=== PATIENT | male | born 1960 | race American Indian/Alaskan Native ===

== ENCOUNTER 2017-08-06 05:28 | Inpatient (IN) | payer MEDICARE ==
[2017-08-06] MEDS ORDERED: PROVENTIL IH ONE ×2 (05:41→06:56)
[2017-08-06] MEDS ORDERED: DUONEB *Not for PRN Use IH ONE ×2 (05:42→06:09)
--- NOTE | 2017-08-06 06:27 | XRay Report ---
FINAL REPORT EXAM: XR CHEST 1V AP HISTORY: Dyspnea TECHNIQUE: A portable upright view of the chest was submitted. FINDINGS: The lungs are diffusely congested. There is a moderate right-sided effusion. There is extensive airspace disease in the right lung. The heart is mildly enlarged. There EKG leads overlying the chest wall. The bones and soft tissues do not show any acute changes. IMPRESSION: Congestive heart failure pattern with right-sided effusion. Patchy airspace disease throughout the right lung. Whether this is related to edema versus pneumonia is uncertain.
[2017-08-06 06:42] LABS: Basophils % (Auto) 0.2 % (0.0-1.8); Eosinophils % (Auto) 1.6 % (0.0-4.3); Hemoglobin 9.7 gm/dl (11.8-15.2); Mean Corpuscular HGB Conc 31 % (32-34); Mean Corpuscular Hemoglobin 30 pg (28-32); Mean Corpuscular Volume 96 fl (84-94); Platelet Count 167 K/mm3 (140-440); Red Blood Count 3.23 M/mm3 (3.65-5.03); White Blood Count 6.6 K/mm3 (4.5-11.0)
--- NOTE | 2017-08-06 07:03 | Emergency Department Report ---
HPI - General Chief Complaint: Dyspnea/Respdistress Time Seen by Provider: 08/06/17 06:49 - HPI HPI: This is a 56-year-old -Russian male presents to the emergency department by EMS from home with complaint of some shortness of breath that has been going on and getting progressively worse over the past few days. He was found to have 86% oxygen on room air when EMS arrived. He was given 5 mg of albuterol and placed on nasal cannula and his oxygen went up to 95%. He has a past medical history of HIV, hypertension and some chronic kidney disease. He has not taken anything for his symptoms prior to presentation. His primary care physician is a Dr. Cooley. No recent travel or sick contacts at home. ED Past Medical Hx - Past Medical History Previous Medical History?: Yes Hx Hypertension: Yes Hx Renal Disease: Yes Hx HIV: Yes - Surgical History Past Surgical History?: No - Social History Smoking Status: Never Smoker Substance Use Type: Prescribed ED Review of Systems ROS: Stated complaint: OMERO Other details as noted in HPI Comment: All other systems reviewed and negative Constitutional: denies: chills, fever Eyes: denies: eye pain, eye discharge, vision change ENT: denies: ear pain, throat pain Respiratory: cough, shortness of breath, wheezing Cardiovascular: edema. denies: chest pain Gastrointestinal: denies: abdominal pain, nausea, diarrhea Genitourinary: denies: urgency, dysuria Musculoskeletal: denies: back pain, joint swelling, arthralgia Skin: denies: rash, lesions Neurological: denies: headache, weakness, paresthesias Physical Exam - Physical Exam Vital Signs: Vital Signs 08/06/17 05:33 Temperature 97.5 F L Pulse Rate 108 H Respiratory 22 Rate Blood Pressure 170/104 O2 Sat by Pulse 99 Oximetry Physical Exam: GENERAL: Patient is ill-appearing. HENT: Normocephalic. Atraumatic. Patient has moist mucous membranes. EYES: Extraocular motions are intact. Pupils equal reactive to light bilaterally. NECK: Supple. Trachea is midline. CHEST/LUNGS: Coarse breath sounds throughout the chest. There is some tachypnea and accessory muscle use. There is conversational dyspnea. There is respiratory distress noted. HEART/CARDIOVASCULAR: Regular. There is mild tachycardia. There is no murmur. ABDOMEN: Abdomen is soft, nontender. Patient has normal bowel sounds. There is no abdominal distention. SKIN: Skin is warm and dry. NEURO: Patient is fatigued but arousable. Hard to assess orientation as he is having conversational dyspnea. Follows commands. Withdraws to painful stimuli. MUSCULOSKELETAL: There is no tenderness or deformity. There is no evidence of acute injury. ED Course Vital Signs 08/06/17 05:33 Temperature 97.5 F L Pulse Rate 108 H Respiratory 22 Rate Blood Pressure 170/104 O2 Sat by Pulse 99 Oximetry - Reevaluation(s) Reevaluation #1: The patient called the nurse and myself back into the room to discuss CODE STATUS. The patient has awake and alert, competent to make his own medical decisions. The DO NOT RESUSCITATE form was read to him in detail and explained in layman's terms that if his heart is to stop or his breathing is to stop and he would not receive any intubation, chest compressions or any advanced resuscitation efforts. He understands and agrees and has signed the DO NOT RESUSCITATE form. 08/06/17 07:23 - ABG Interpretation Ph: [phone] PCO2: 44 PO2: 65 Bicarbonate: 26 Interpretation: normal ED Medical Decision Making - Lab Data Result diagrams: 08/06/17 06:18 08/06/17 06:18 - EKG Data -: EKG Interpreted by Ne EKG shows normal: sinus rhythm, axis, intervals, QRS complexes, ST-T waves Rate: tachycardia (124 bpm) - EKG Data When compared to previous EKG there are: previous EKG unavailable Interpretation: other (sinus tach, borderline prolonged QT, no STEMI) - Radiology Data Radiology results: report reviewed EXAM: XR CHEST 1V AP HISTORY: Dyspnea TECHNIQUE: A portable upright view of the chest was submitted. FINDINGS: The lungs are diffusely congested. There is a moderate right-sided effusion. There is extensive airspace disease in the right lung. The heart is mildly enlarged. There EKG leads overlying the chest wall. The bones and soft tissues do not show any acute changes. IMPRESSION: Congestive heart failure pattern with right-sided effusion. Patchy airspace disease throughout the right lung. Whether this is related to edema versus pneumonia is uncertain. Transcribed By: RB Dictated By: KELLY CABALLERO MD Electronically Authenticated By: KELLY CABALLERO MD Signed Date/Time: 08/06/17223 CT HEAD WITHOUT CONTRAST: HISTORY: Altered mental status. TECHNIQUE: Sequential 2.5mm CT images. COMPARISON: none. FINDINGS: Cerebral Parenchyma: Within normal limits. Cerebellum: Within normal limits. Brainstem: Within normal limits. Ventricles: Normal. Sella: Normal. Extra-axial spaces: Normal. Basal Cisterns: Normal. Intracranial Hemorrhage: None. Midline Shift: None. Calvarium: Normal. Sinuses: Normal. Mastoid Air Cells: Normal. Visualized Orbits: Normal. IMPRESSION: Cranial CT scan within normal limits. Transcribed By: TTR Dictated By: SANDY CAREY JR, MD Electronically Authenticated By: SANDY CAREY JR, MD Signed Date/Time: 08/06/17 0946 - Medical Decision Making Patient presents from home with some shortness of breath and was found to have some hypoxia at first by EMS. He does appear to have some respiratory distress here but this improves with breathing treatments. He was also given some IV Solu-Medrol and supplemental oxygen. The patient has some abnormal labs including renal sufficiency, elevated troponin, elevated d-dimer and elevated BNP. Attempted to do a VQ scan but the patient became more fatigued and or lethargic. Prior to this all happening, as discussed in the reevaluation section, the patient made himself a DO NOT RESUSCITATE. Patient had bilateral lower extremity venous Dopplers that were negative for DVT. Chest x-ray was read as some volume overload but also possibly some airspace disease. Blood culture sent and the patient was started on Levaquin. He will be admitted to the hospital for further evaluation and treatment has been accepted for admission by the hospitalist, Dr. Christine. - Differential Diagnosis CHF, pneumonia, PE, VT Critical Care Time: No Critical care attestation.: If time is entered above; I have spent that time in minutes in the direct care of this critically ill patient, excluding procedure time. ED Disposition Clinical Impression: ESRD on dialysis, Respiratory distress Volume overload Qualifiers: Hypervolemia type: unspecified Qualified Code(s): E87.70 - Fluid overload, unspecified Anemia in CKD (chronic kidney disease) Qualifiers: Chronic kidney disease stage: unspecified stage Qualified Code(s): N18.9 - Chronic kidney disease, unspecified; D63.1 - Anemia in chronic kidney disease; D63.1 - Anemia in chronic kidney disease Altered mental state Qualifiers: Altered mental status type: unspecified Qualified Code(s): R41.82 - Altered mental status, unspecified Disposition: DC-09 OP ADMIT IP TO THIS HOSP Is pt being admited?: Yes Condition: Serious Referrals: EAN MOON [employer]INE OPERATOR [Primary Care Provider] - 3-5 Days Time of Disposition: 13:13
[2017-08-06 07:15] LABS: Creatine Kinase MB 8.8 ng/mL (0.0-4.0)
[2017-08-06 07:17] LABS: Albumin 3.7 g/dL (3.9-5); Albumin/Globulin Ratio 0.6 %; Bilirubin,Total 1.1 mg/dL (0.1-1.2); Chloride 90.5 mmol/L (98-107); Total Protein 9.6 g/dL (6.3-8.2)
[2017-08-06 07:28] LABS: Potassium 4.6 mmol/L (3.6-5.0)
[2017-08-06] MEDS ORDERED: ROBITUSSIN ONE (07:35)
[2017-08-06] MEDS ORDERED: ROBITUSSIN AC PO ONE (08:00)
[2017-08-06] MEDS ORDERED: ROBITUSSIN PO ONE (08:05)
[2017-08-06 08:48] LABS: ISTAT Base Excess 1; ISTAT HCO3 26.1; ISTAT PCO2 44.8 (35-45); ISTAT PH 7.374 (7.35-7.45); ISTAT PO2 65 (80-105); ISTAT SO2 92; ISTAT TCO2 27
[2017-08-06] MEDS ORDERED: LEVAQUIN 750MG/150ML 750 MG/150 ML BAG IV ONE (09:12)
--- NOTE | 2017-08-06 09:51 | Cat Scan Report ---
CT HEAD WITHOUT CONTRAST: HISTORY: Altered mental status. TECHNIQUE: Sequential 2.5mm CT images. COMPARISON: none. FINDINGS: Cerebral Parenchyma: Within normal limits. Cerebellum: Within normal limits. Brainstem: Within normal limits. Ventricles: Normal. Sella: Normal. Extra-axial spaces: Normal. Basal Cisterns: Normal. Intracranial Hemorrhage: None. Midline Shift: None. Calvarium: Normal. Sinuses: Normal. Mastoid Air Cells: Normal. Visualized Orbits: Normal. IMPRESSION: Cranial CT scan within normal limits.
[2017-08-06] MEDS ORDERED: TYLENOL PO PRN (12:37)
[2017-08-06] MEDS ORDERED: DULCOLAX PR PRN (12:37)
[2017-08-06] MEDS ORDERED: PROVENTIL IH PRN (12:37)
[2017-08-06] MEDS ORDERED: ZOFRAN IV PRN (12:37)
[2017-08-06] MEDS ORDERED: MILK OF MAGNESIA PO PRN (12:37)
--- NOTE | 2017-08-06 12:37 | History and Physical Report ---
History of Present Illness Chief complaint: I cant breathe History of present illness: 56 YO Male with HIV, HTN, ESRD on HD(M,W,F) presents to ED for evaluation. Pt states that he has experienced shortness of breath for the past 4 days with progressively worsening symptoms over the same time frame. Pt acknowledges cough. No reports of fever, chill, CP, Palpitations, NVD, Syncope, skin rash, BRBPR, Trauma, or recent ill contacts. EMS notified, and upon arrival patient found to have hypoxemic respiratory failure with oxygen saturation of 86%on RA. Pt treated with supplemental oxygen and transported to [facility] for evaluation. Pt seen and evaluated in ED and found to be in distress. Pt initiated on Pneumonia protocol, and admitted to medial floor. Past History Past Medical History: HIV/AIDS, hypertension, renal failure Past Surgical History: No surgical history, Other (reviewed) Social history: single. denies: smoking, alcohol abuse, prescription drug abuse Family history: hypertension Medications and Allergies Allergies Allergy/AdvReac Type Severity Reaction Status Date / Time Sulfa (Sulfonamide Allergy Hives Verified 08/06/17 05:40 Antibiotics) Review of Systems Constitutional: anorexia, no weight loss, no weight gain, no fever, no chills Ears, nose, mouth and throat: no ear pain, no ear discharge, no tinnitis, no decreased hearing Cardiovascular: no chest pain, no orthopnea, no palpitations, no rapid/ irregular heart beat Respiratory: cough, shortness of breath, no excessive sputum, no hemoptysis Gastrointestinal: no nausea, no vomiting, no diarrhea Genitourinary Male: no hematuria, no flank pain, no discharge, no urinary frequency, no urinary hesitancy Rectal: no pain, no incontinence, no bleeding Musculoskeletal: no neck stiffness, no neck pain, no arm numbness/tingling, no low back pain Integumentary: no rash, no pruritis, no redness, no sores Neurological: no paralysis, no weakness, no parathesias, no numbness, no tingling, no seizures Psychiatric: no memory loss, no change in sleep habits, no sleep disturbances, no insomnia, no hypersomnia, no change in appetite Endocrine: no cold intolerance, no heat intolerance, no polyphagia, no excessive thirst, no polydipsia, no polyuria Hematologic/Lymphatic: no easy bruising, no easy bleeding Allergic/Immunologic: no urticaria, no allergic rhinitis, no wheezing Exam - Constitutional Vitals: Temp Pulse Resp BP Pulse Ox 97.5 F L 105 H 18 128/88 97 08/06/17 05:33 08/06/17 12:15 08/06/17 12:15 08/06/17 12:15 08/06/17 12:15 General appearance: Present: mild distress, cachectic, disheveled - EENT Eyes: Present: PERRL ENT: hearing intact, clear oral mucosa - Respiratory Respiratory effort: labored Respiratory: bilateral: diminished - Cardiovascular Heart Sounds: Present: S1 & S2. Absent: rub, click - Extremities Extremities: pulses symmetrical, No edema - Abdominal General gastrointestinal: Present: soft, non-tender, non-distended Male genitourinary: Absent: normal - Integumentary Integumentary: Present: clear, dry, clammy, decreased turgor - Musculoskeletal Musculoskeletal: generalized weakness - Psychiatric Psychiatric: appropriate mood/affect - Neurologic Neurologic: CNII-XII intact, moves all extremities Results - Labs CBC & Chem 7: 08/06/17 06:18 08/06/17 06:18 Labs: Abnormal lab results 08/06/17 08/06/17 08/06/17 Range/Units 06:18 06:18 06:18 RBC 3.23 L (3.65-5.03) M/mm3 Hgb 9.7 L (11.8-15.2) gm/dl Hct 31.0 L (35.5-45.6) % MCV 96 H (84-94) fl MCHC 31 L (32-34) % RDW 17.0 H (13.2-15.2) % Lymph # 1.0 L (1.2-5.4) K/mm3 Seg Neutrophils % 77.2 H (40.0-70.0) % D-Dimer 1249.06 H (0-234) ng/mlDDU POC ABG pO2 (80-105) Chloride 90.5 L (98-107) mmol/L BUN 47 H (9-20) mg/dL Creatinine 8.6 H (0.8-1.5) mg/dL Glucose 111 H (75-100) mg/dL Lactic Acid (0.7-2.0) mmol/L Calcium 7.0 L (8.4-10.2) mg/dL Ammonia (25-60) umol/L Total Creatine Kinase 681 H (55-170) units/L CK-MB (CK-2) 8.8 H (0.0-4.0) ng/mL Troponin T (0.00-0.029) ng/mL NT-Pro-B Natriuret Pep (0-900) pg/mL Total Protein 9.6 H (6.3-8.2) g/dL Albumin 3.7 L (3.9-5) g/dL LDL Cholesterol Direct (50-130) mg/dL 08/06/17 08/06/17 08/06/17 Range/Units 06:18 06:18 08:47 RBC (3.65-5.03) M/mm3 Hgb (11.8-15.2) gm/dl Hct (35.5-45.6) % MCV (84-94) fl MCHC (32-34) % RDW (13.2-15.2) % Lymph # (1.2-5.4) K/mm3 Seg Neutrophils % (40.0-70.0) % D-Dimer (0-234) ng/mlDDU POC ABG pO2 65 L (80-105) Chloride (98-107) mmol/L BUN (9-20) mg/dL Creatinine (0.8-1.5) mg/dL Glucose (75-100) mg/dL Lactic Acid 2.40 H* (0.7-2.0) mmol/L Calcium (8.4-10.2) mg/dL Ammonia (25-60) umol/L Total Creatine Kinase (55-170) units/L CK-MB (CK-2) (0.0-4.0) ng/mL Troponin T (0.00-0.029) ng/mL NT-Pro-B Natriuret Pep > 84129 H (0-900) pg/mL Total Protein (6.3-8.2) g/dL Albumin (3.9-5) g/dL LDL Cholesterol Direct (50-130) mg/dL 08/06/17 08/06/17 Range/Units 09:41 09:41 RBC (3.65-5.03) M/mm3 Hgb (11.8-15.2) gm/dl Hct (35.5-45.6) % MCV (84-94) fl MCHC (32-34) % RDW (13.2-15.2) % Lymph # (1.2-5.4) K/mm3 Seg Neutrophils % (40.0-70.0) % D-Dimer (0-234) ng/mlDDU POC ABG pO2 (80-105) Chloride (98-107) mmol/L BUN (9-20) mg/dL Creatinine (0.8-1.5) mg/dL Glucose (75-100) mg/dL Lactic Acid (0.7-2.0) mmol/L Calcium (8.4-10.2) mg/dL Ammonia 18.0 L (25-60) umol/L Total Creatine Kinase (55-170) units/L CK-MB (CK-2) (0.0-4.0) ng/mL Troponin T 0.259 H* (0.00-0.029) ng/mL NT-Pro-B Natriuret Pep (0-900) pg/mL Total Protein (6.3-8.2) g/dL Albumin (3.9-5) g/dL LDL Cholesterol Direct 42 L (50-130) mg/dL Assessment and Plan - Patient Problems (1) Pneumonia Current Visit: Yes Status: Acute Qualifiers: Laterality: right Lung location: lower lobe of lung Plan to address problem: Pneumonia protocol: IV abx, IVF, supplemental oxygen, aspiration precautions, nebulizer therapy, supportive care. Chest X ray (2) ESRD on dialysis Current Visit: Yes Status: Acute Plan to address problem: Nephrology consulted in ED, dialysis as per renal team. (3) Respiratory failure Current Visit: Yes Status: Acute Plan to address problem: Supplemental oxygen, nebs, aspiration precautions, NIPPV as cilnically indicated , (4) ARF (acute renal failure) Current Visit: Yes Status: Acute Plan to address problem: IVF resuscitation, monitor uop q shift, (5) HIV (human immunodeficiency virus infection) Current Visit: Yes Status: Acute Plan to address problem: ID f/u as outpatient. (6) DVT prophylaxis Current Visit: Yes Status: Acute
--- NOTE | 2017-08-06 14:43 | Nuclear Medicine Report ---
LUNG SCAN, VENTILATION AND PERFUSION: History: Short of breath, elevated d-dimer. Technique: 5mci of Tc99m MAA was infused for the perfusion images. 15mci XE 133 gas was inhaled for the ventilatory images. Correlation is made with a chest x-ray dated 08/06/17. Findings: Inhalation of Xenon gas demonstrates a normal distribution of the activity throughout both lungs. The wash out phases show no focal retention of activity. After injection of Technetium 99m macroaggregated albumin gamma camera imaging of the lungs in multiple projections demonstrates Diminished perfusion to large areas of the right lung which correlate with a suspected infiltrate and effusion in the right lung seen on chest x-ray performed the same day. There is normal distribution of radiotracer to the left lung. IMPRESSION: Low probability for pulmonary embolus. Findings are most consistent with a right lung pneumonia and right pleural effusion.
[2017-08-06] MEDS ORDERED: cefTRIAXone 1 GM in NACL 0.9% 20 ML IV SCH (16:00)
[2017-08-06] MEDS ORDERED: ZITHROMAX 500 MG in NACL 0.9% 250ML 250 ML IV SCH (17:00)
[2017-08-07 07:56] VITALS: BP 164/109
--- NOTE | 2017-08-07 09:30 | Discharge Summary ---
Providers - Providers Date of Admission: 08/06/17 12:38 Attending physician: DEIRDRE RAMOS MD 08/07/17 08:25 Consult to Physician [CONS] Routine Consulting Provider: VANESSA LEO Reason For Exam: SEPSIS Place consult to:: dr. fajardo Notified:: md Was contact made?: Yes If yes, spoke with:: dr. fajardo Time called:: 09:17 Primary care physician: EAN MOON Hospitalization Reason for admission: shortness of breath Condition: Fair Hospital course: 56 YO Male with HIV, HTN, ESRD on HD(M,W,F) presents to ED for evaluation. Pt states that he has experienced shortness of breath for the past 4 days with progressively worsening symptoms over the same time frame. Pt acknowledges cough. No reports of fever, chill, CP, Palpitations, NVD, Syncope, skin rash, BRBPR, Trauma, or recent ill contacts. EMS notified, and upon arrival patient found to have hypoxemic respiratory failure with oxygen saturation of 86%on RA. Pt treated with supplemental oxygen and transported to [facility] for evaluation. Pt seen and evaluated in ED and found to be in distress. Pt initiated on Pneumonia protocol, and admitted to medial floor. patient states he is sick and has been for a long time and said ''young man do not waste your time and insurance money i have had lots of evaluation" he subsequently left against my advise despite all the noted laboratory abnormality. - Patient Problems (1) Pneumonia possible gram negative (2) ESRD on dialysis (3) Acute on chronic Respiratory failure With hypoxia (4) Hypertensive urgency (5) HIV (human immunodeficiency virus infection) (6) Type 2 [place] (7) SInus tachycardia (8) Presumed sepsis (9) Hypercoagulable state- Elevated D.dimer Disposition: DC-07 LEFT AGAINST MED ADVICE Time spent for discharge: 35 mins Core Measure Documentation - Palliative Care Palliative Care/ Comfort Measures: Not Applicable - Core Measures Any of the following diagnoses?: heart failure - VTE Discharge Requirements Contraindication No Overlap Therapy order at DC: Patient Refusal - Heart Failure Discharge Requirements DEBBIE/ARB for LVSD if EF <40%: No (pt refused work up or information about meds- states he is on all meds mentioned) Reason for no DEBBIE/ARB: Patient refusal Beta fito at discharge: No Reason for no beta fito on DC: Patient refusal Exam - Physical Exam Narrative exam: was not agreable for full physical exam - Constitutional Vitals: Temp Pulse Resp BP Pulse Ox 97.4 F L 91 H 19 164/109 100 08/07/17 07:18 08/07/17 07:18 08/07/17 07:18 08/07/17 07:18 08/07/17 07:18 General appearance: Present: no acute distress - EENT Eyes: Present: PERRL, EOM intact - Neck Neck: Present: normal ROM - Respiratory Respiratory effort: normal Respiratory: bilateral: diminished - Cardiovascular Heart Sounds: Present: S1 & S2 (tachycardia on monitor) - Extremities Extremity abnormal: edema - Musculoskeletal Musculoskeletal: strength equal bilaterally - Psychiatric Psychiatric: appropriate mood/affect, cooperative - Neurologic Neurologic: CNII-XII intact Plan Follow up with: EAN MOON [employer] CONDUCTOR [employer]SEMBLER [Primary Care Provider] - 3-5 Days
[2017-08-07] MEDS ORDERED: ROCEPHIN/NS 1 GM/50 ML 1 GM/50 ML BAG IV SCH (10:00)
--- NOTE | 2017-08-07 13:08 | Vascular Lab Report ---
LOWER EXTREMITY VENOUS DUPLEX: REASON FOR EXAM: Elevated D-dimer. COMMENTS ON THE RIGHT: All veins visualized are freely compressible without evidence of internal echogenicity. Flow is spontaneous and phasic throughout. COMMENTS ON THE LEFT: All veins visualized are freely compressible without evidence of internal echogenicity. Flow is spontaneous and phasic throughout. IMPRESSION: No evidence of acute or chronic deep venous thrombosis in either lower extremity.
== END 2017-08-07 10:00 | disposition left against medical advice (07) | DRG 974 ==
LOC: ED 05:28 → 3A 12:38
PROVIDERS: ADMIT Internal Medicine; ATTEND Internal Medicine
PROC: 4A033R1 Measurement of Arterial Saturation, Peripheral, Percutaneous Approach (ICD-10-PCS; principal; 2017-08-06)
DX: B20 Human immunodeficiency virus [HIV] disease (principal); N18.6 End stage renal disease; A41.9 Sepsis, unspecified organism; J96.21 Acute and chronic respiratory failure with hypoxia; I21.A1 Myocardial infarction type 2; J18.1 Lobar pneumonia, unspecified organism; R64 Cachexia; Z68.1 Body mass index [BMI] 19.9 or less, adult; D68.59 Other primary thrombophilia; N17.9 Acute kidney failure, unspecified; I12.0 Hypertensive chronic kidney disease with stage 5 chronic kidney disease or end stage renal disease; Z66 Do not resuscitate; E87.70 Fluid overload, unspecified; D63.1 Anemia in chronic kidney disease; I16.0 Hypertensive urgency; Z88.2 Allergy status to sulfonamides; Z99.2 Dependence on renal dialysis; Z53.21 Procedure and treatment not carried out due to patient leaving prior to being seen by health care provider
CPT/HCPCS: 36415; 70450; 71010; 78582; 80053; 80061; 82140; 82550; 82553; 82803; 83880; 84484; 85025; 85379; 87040; 93005; 93010; 93970; 94640; 96374; 96375; A9540; A9558; J0456; J0696; J1956; J2930; J7050